=== PATIENT | male | born 1940 | race Caucasian/White ===

== ENCOUNTER 2023-06-27 06:24 | Inpatient (IN) | payer MEDICARE, OTHER ==
[~2023-06-27] VITALS: Ht 167.6 cm; Wt 63.5 kg
[2023-06-27 06:26] VITALS: BP 170/90; PULSE 96; RESP 18; TEMP 101.8; O2SAT 94
[2023-06-27 07:41] LABS: BASOPHILS % (AUTO) 0.4 % (0.0-2.0); EOSINOPHILS # (AUTO) 0.1 K/uL (0-0.4); EOSINOPHILS % (AUTO) 1.3 % (0.0-4.0); HEMATOCRIT 29.8 % (36-52); HEMOGLOBIN 9.9 g/dL (12.0-18.0); LYMPHOCYTES # (AUTO) 0.8 K/uL (2.0-11.5); LYMPHOCYTES % (AUTO) 8.8 % (20.5-51.1); MEAN CORPUSCULAR HEMOGLOBIN 30 pg (27-31); MEAN CORPUSCULAR HGB CONC 33 g/dL (33-37); MEAN CORPUSCULAR VOLUME 88.8 fL (80-94); MONOCYTES # (AUTO) 0.7 K/uL (0.8-1.0); MONOCYTES % (AUTO) 8.3 % (1.7-9.3); NEUTROPHILS % (AUTO) 81.2 % (42.2-75.2); PLATELET COUNT (AUTO) 317 K/uL (140-450); RED BLOOD CELL COUNT(AUTO) 3.35 MIL/uL (4.20-6.10); RED CELL DISTRIBUTION WIDTH 16.7 % (11.6-13.7); WHITE BLOOD COUNT (AUTO) 8.7 K/uL (4.8-10.8)
[2023-06-27 08:03] LABS: FLU A ANTIGEN negative (NEGATIVE); FLU B ANTIGEN negative (NEGATIVE)
[2023-06-27 08:10] LABS: ALANINE AMINOTRANSFERASE 8 U/L (12-78); ALBUMIN 2.9 g/dL (3.4-5.0); ALKALINE PHOSPHATASE 82 U/L (50-136); ANION GAP 12.4 (8-16); ASPARTATE AMINOTRANSFERASE 20 U/L (15-37); CALCIUM 8.9 mg/dL (8.5-10.1); CARBON DIOXIDE 28.8 mmol/L (21-32); CHLORIDE 105 mmol/L (98-107); CREATININE 1.8 mg/dL (0.6-1.3); GLUCOSE 97 mg/dL (74-106); POTASSIUM 5.2 mmol/L (3.5-5.1); SODIUM SERUM 141 mmol/L (136-145); TOTAL BILIRUBIN 0.2 mg/dL (0.0-1.0); TOTAL PROTEIN, SERUM 7.1 g/dL (6.4-8.2); UREA NITROGEN, BLOOD 18 mg/dL (7-18)
[2023-06-27] MEDS ORDERED: ACETAMINOPHEN 325 MG TAB PO PRN (09:00)
[2023-06-27] MEDS ORDERED: ONDANSETRON 4 MG/2 ML VIAL IVP PRN (09:00)
[2023-06-27] MEDS ORDERED: ENOXAPARIN 40 MG/0.4 ML SYR SUBQ SCH (09:00)
[2023-06-27] MEDS ORDERED: methylPREDNISolone SS 125 MG/2 ML VIAL ONE (09:07)
[2023-06-27] MEDS: methylPREDNISolone SS 125 MG/2 ML VIAL IVP ONE (09:21)
[2023-06-27] MEDS: NACL 0.9% 1,000 ML IV ONE (09:22)
[2023-06-27] MEDS: ALBUTEROL SULFATE/IPRATROPIU 3 ML SOL IH ONE ×2 (10:05→10:09)
[2023-06-27 10:08] VITALS: PULSE 85; RESP 24; O2SAT 95
[2023-06-27] MEDS ORDERED: AZITHROMYCIN 500 MG INJ VIAL IV ONE (10:56)
[2023-06-27] MEDS ORDERED: cefTRIAXone 1,000 MG VIAL ONE (10:57)
[2023-06-27] MEDS: NACL 0.9% 1,000 ML IV SCH (11:11)
[2023-06-27] MEDS: ENOXAPARIN 30 MG/0.3 ML SYR SUBQ SCH (11:12)
[2023-06-27] MEDS: AZITHROMYCIN 500 MG in DEXTROSE 5% 250 ML IV SCH (12:22)
[2023-06-27] MEDS: methylPREDNISolone SS 40 MG/ML VIAL IVP SCH (13:35)
[2023-06-27] MEDS: LORazepam 2 MG/ML VIAL IVP PRN (13:39)
[2023-06-27] MEDS ORDERED: ALBUTEROL SULFATE/IPRATROPIU 3 ML SOL IH ONE (15:46)
[2023-06-27 15:50] VITALS: PULSE 73; RESP 20; O2SAT 97
[2023-06-27] MEDS: ALBUTEROL SULFATE/IPRATROPIU 3 ML SOL IH PRN (15:50)
[2023-06-27 19:01] VITALS: O2SAT 93
[2023-06-27 21:10] VITALS: BP 154/64; PULSE 78; RESP 18; TEMP 97.8; O2SAT 95
[2023-06-27 21:23] VITALS: PULSE 79
[2023-06-28] VITALS (12 sets, daily range): BP systolic 149–160; BP diastolic 55–69; PULSE 48–114; RESP 18–22; TEMP 97.2–98.5; O2SAT 92–98
[2023-06-28] MEDS: HYDROcodone/APAP 5/325 MG 1 TAB TAB PO PRN (00:42)
[2023-06-28 07:02] LABS: BASOPHILS % (AUTO) 0.1 % (0.0-2.0); HEMOGLOBIN 9.1 g/dL (12.0-18.0); LYMPHOCYTES # (AUTO) 0.4 K/uL (2.0-11.5); LYMPHOCYTES % (AUTO) 6.8 % (20.5-51.1); MEAN CORPUSCULAR HEMOGLOBIN 30 pg (27-31); MEAN CORPUSCULAR HGB CONC 34 g/dL (33-37); MEAN CORPUSCULAR VOLUME 88.6 fL (80-94); MONOCYTES # (AUTO) 0.2 K/uL (0.8-1.0); MONOCYTES % (AUTO) 3.4 % (1.7-9.3); NEUTROPHILS # (AUTO) 5.8 K/uL (1.8-7.7); NEUTROPHILS % (AUTO) 89.7 % (42.2-75.2); PLATELET COUNT (AUTO) 269 K/uL (140-450); RED BLOOD CELL COUNT(AUTO) 3.05 MIL/uL (4.20-6.10); RED CELL DISTRIBUTION WIDTH 16.6 % (11.6-13.7); WHITE BLOOD COUNT (AUTO) 6.4 K/uL (4.8-10.8)
[2023-06-28 07:16] LABS: ALANINE AMINOTRANSFERASE 11 U/L (12-78); ALBUMIN 2.7 g/dL (3.4-5.0); ALKALINE PHOSPHATASE 76 U/L (50-136); ANION GAP 12.5 (8-16); ASPARTATE AMINOTRANSFERASE 18 U/L (15-37); CALCIUM 8.5 mg/dL (8.5-10.1); CARBON DIOXIDE 28.4 mmol/L (21-32); CHLORIDE 107 mmol/L (98-107); CREATININE 1.5 mg/dL (0.6-1.3); GLUCOSE 126 mg/dL (74-106); POTASSIUM 4.9 mmol/L (3.5-5.1); SODIUM SERUM 143 mmol/L (136-145); TOTAL BILIRUBIN 0.3 mg/dL (0.0-1.0); TOTAL PROTEIN, SERUM 6.7 g/dL (6.4-8.2); UREA NITROGEN, BLOOD 19 mg/dL (7-18)
[2023-06-28] MEDS: diphenhydrAMINE 50 MG/ML VIAL IM SCH (12:50)
[2023-06-28] MEDS: QUEtiapine FUMARATE 25 MG TAB PO SCH (12:50)
[2023-06-28] MEDS: HALOPERIDOL IM 5 MG/ML VIAL IM PRN (13:22)
[2023-06-29] VITALS (11 sets, daily range): BP systolic 112–162; BP diastolic 45–72; PULSE 48–90; RESP 18–20; TEMP 97.7–98.7; O2SAT 92–99
[2023-06-29 06:35] LABS: HEMATOCRIT 28.7 % (36-52); HEMOGLOBIN 9.5 g/dL (12.0-18.0); LYMPHOCYTES # (AUTO) 0.4 K/uL (2.0-11.5); LYMPHOCYTES % (AUTO) 4.1 % (20.5-51.1); MEAN CORPUSCULAR HEMOGLOBIN 29 pg (27-31); MEAN CORPUSCULAR HGB CONC 33 g/dL (33-37); MEAN CORPUSCULAR VOLUME 88.1 fL (80-94); MONOCYTES # (AUTO) 0.2 K/uL (0.8-1.0); MONOCYTES % (AUTO) 1.9 % (1.7-9.3); NEUTROPHILS # (AUTO) 9.5 K/uL (1.8-7.7); PLATELET COUNT (AUTO) 324 K/uL (140-450); RED BLOOD CELL COUNT(AUTO) 3.26 MIL/uL (4.20-6.10); RED CELL DISTRIBUTION WIDTH 16.6 % (11.6-13.7); WHITE BLOOD COUNT (AUTO) 10.1 K/uL (4.8-10.8)
[2023-06-29 06:51] LABS: ANION GAP 15.5 (8-16); CALCIUM 9.1 mg/dL (8.5-10.1); CARBON DIOXIDE 26.1 mmol/L (21-32); CHLORIDE 105 mmol/L (98-107); CREATININE 1.4 mg/dL (0.6-1.3); GLUCOSE 99 mg/dL (74-106); POTASSIUM 4.6 mmol/L (3.5-5.1); SODIUM SERUM 142 mmol/L (136-145); UREA NITROGEN, BLOOD 26 mg/dL (7-18)
[2023-06-29] MEDS: QUEtiapine FUMARATE 25 MG TAB PO SCH (20:24)
[2023-06-29] MEDS: BENZONATATE 100 MG CAPLF PO PRN (21:11)
[2023-06-30] VITALS (7 sets, daily range): BP systolic 141–158; BP diastolic 56–69; PULSE 47–94; RESP 18–24; TEMP 96.8–98.9; O2SAT 92–98
[2023-06-30 07:00] LABS: BASOPHILS % (AUTO) 0.1 % (0.0-2.0); HEMATOCRIT 28.8 % (36-52); HEMOGLOBIN 9.6 g/dL (12.0-18.0); LYMPHOCYTES # (AUTO) 1.4 K/uL (2.0-11.5); LYMPHOCYTES % (AUTO) 14.7 % (20.5-51.1); MEAN CORPUSCULAR HEMOGLOBIN 30 pg (27-31); MEAN CORPUSCULAR HGB CONC 34 g/dL (33-37); MEAN CORPUSCULAR VOLUME 88.2 fL (80-94); MONOCYTES # (AUTO) 0.8 K/uL (0.8-1.0); MONOCYTES % (AUTO) 8.7 % (1.7-9.3); NEUTROPHILS # (AUTO) 7.4 K/uL (1.8-7.7); NEUTROPHILS % (AUTO) 76.5 % (42.2-75.2); PLATELET COUNT (AUTO) 328 K/uL (140-450); RED BLOOD CELL COUNT(AUTO) 3.26 MIL/uL (4.20-6.10); RED CELL DISTRIBUTION WIDTH 15.9 % (11.6-13.7); WHITE BLOOD COUNT (AUTO) 9.7 K/uL (4.8-10.8)
[2023-06-30] MEDS: methylPREDNISolone SS 40 MG/ML VIAL IVP SCH (08:27)
[2023-06-30 09:03] LABS: ANION GAP 10.9 (8-16); CALCIUM 8.9 mg/dL (8.5-10.1); CARBON DIOXIDE 28.6 mmol/L (21-32); CHLORIDE 106 mmol/L (98-107); CREATININE 1.4 mg/dL (0.6-1.3); GLUCOSE 113 mg/dL (74-106); POTASSIUM 3.5 mmol/L (3.5-5.1); SODIUM SERUM 142 mmol/L (136-145); UREA NITROGEN, BLOOD 29 mg/dL (7-18)
[2023-06-30] MEDS ORDERED: METH4TAB1 PO (12:12)
[2023-06-30] MEDS ORDERED: ALBU0.0912 INH (12:12)
[2023-06-30] MEDS ORDERED: AMOX-999 PO (12:12)
[2023-06-30] MEDS ORDERED: AMOX-1230 PO (12:12)
[2023-07-03] MEDS ORDERED: ALBU0.0912 INH (12:20)
[2023-07-03] MEDS ORDERED: AMOX-1230 PO (12:20)
[2023-07-03] MEDS ORDERED: METH4TAB1 PO (12:20)
== END 2023-06-30 18:16 | disposition home health service (06) | DRG 871 ==
LOC: MED 06:24 → MMU 08:56 → MTU 08:59
PROVIDERS: ADMIT Family Medicine; ATTEND Family Medicine
DX: A41.9 Sepsis, unspecified organism (principal); J15.69 Pneumonia due to other Gram-negative bacteria; J96.01 Acute respiratory failure with hypoxia; J44.1 Chronic obstructive pulmonary disease with (acute) exacerbation; N17.9 Acute kidney failure, unspecified; Z20.822 Contact with and (suspected) exposure to COVID-19; M54.9 Dorsalgia, unspecified; Z79.899 Other long term (current) drug therapy; Z88.8 Allergy status to other drugs, medicaments and biological substances
CPT/HCPCS: 36415; 71045; 80048; 80053; 83880; 84484; 85025; 87081; 93005; 94640; 96361; 96374; 97530; 99291; J0456; J0696; J1200; J1630; J1650; J2060; J2920; J2930; J7060